=== PATIENT | male | born 1950 | race Caucasian/White ===

== ENCOUNTER → 2016-07-03 | Outpatient (CLI) | payer SELFPAY ==
--- NOTE | 2016-07-03 15:55 | US ---
EXAMINATION: Renal and renal arterial duplex ultrasound HISTORY: Hypertension COMPARISON: None TECHNIQUE: Grayscale and color Doppler images obtained of the kidneys, color and spectral Doppler im ages obtained of the renal arteries. FINDINGS: The right kidney measures 12.9 cm and the left kidney measures 12.2 cm [id number] withou t evidence of hydronephrosis. The renal cortical echotexture is normal. No renal masses. Normal colo r Doppler flow demonstrated bilaterally. Flow within the aorta is 122 cm/s. Velocities within the origin, proximal, mid, and distal right jazmin al arteries measure 129, 133, 164, and 122 cm/s. Velocities within the origin, proximal, mid, and di stal left radial arteries measure 95, 138, 125, and 180 cm/s respectively. The right RAR is 1.3, the left is 1.5. No elevated resistive indices are noted within the arcuates. IMPRESSION: 1. Unremarkable renal ultrasound. 2. No significant elevated velocities noted within the renal arteries bilaterally suggest significan t stenosis.
--- NOTE | 2016-07-03 15:55 | US ---
EXAMINATION: Renal and renal arterial duplex ultrasound HISTORY: Hypertension COMPARISON: None TECHNIQUE: Grayscale and color Doppler images obtained of the kidneys, color and spectral Doppler im ages obtained of the renal arteries. FINDINGS: The right kidney measures 12.9 cm and the left kidney measures 12.2 cm [id number] withou t evidence of hydronephrosis. The renal cortical echotexture is normal. No renal masses. Normal colo r Doppler flow demonstrated bilaterally. Flow within the aorta is 122 cm/s. Velocities within the origin, proximal, mid, and distal right jazmin al arteries measure 129, 133, 164, and 122 cm/s. Velocities within the origin, proximal, mid, and di stal left radial arteries measure 95, 138, 125, and 180 cm/s respectively. The right RAR is 1.3, the left is 1.5. No elevated resistive indices are noted within the arcuates. IMPRESSION: 1. Unremarkable renal ultrasound. 2. No significant elevated velocities noted within the renal arteries bilaterally suggest significan t stenosis.
== END ==
LOC: MW.US 09:00
PROVIDERS: ATTEND Internal Medicine
DX: I10 Essential (primary) hypertension (principal)
CPT/HCPCS: 76770; 76770-26; 93975; 93975-26

== ENCOUNTER 2018-05-16 10:22 | Day surgery (SDC) | payer MEDICARE ==
[~2018-05-16 10:22] MED LIST: Lactated Ringers 1,000 ML IV SCH; Lidocaine 2% 5 ML SDV ONE; Propofol 200 MG/20 ML SDV ONE; Sodium Chloride 0.9% 10 ML Syringe FLUSH PRN; Sodium Chloride 0.9% 2.5 ML Syringe FLUSH PRN; fentaNYL 100 MCG/2 ML SDV ONE
--- NOTE | 2018-05-16 11:14 | PCM.PREANE ---
Preanesthetic Assessment - Anesthesia/Transfusion/Family Hx Anesthesia History: Prior Anesthesia Without Reaction Transfusion History: No Prior Transfusion(s) - Review of Systems General: No Symptoms Pulmonary: No Symptoms Cardiovascular: No Symptoms Gastrointestinal: No Symptoms Neurological: No Symptoms Other: Reports: None - Physical Assessment NPO Status Date: 05/16/18 NPO Status Time: 09:00 O2 Sat by Pulse Oximetry: 96 Respiratory Rate: 18 Vital Signs: Last Vital Signs Temp 35.9 C 05/16/18 10:45 Pulse 65 05/16/18 10:45 Resp 18 05/16/18 10:45 BP 111/70 05/16/18 10:45 Pulse Ox 96 05/16/18 10:45 Height: 1.8 m Weight: 93.44 kg ASA Class: 2 Mental Status: Alert & Oriented x3 Airway Class: Mallampati = 3 (large tongue, small mouth) Dentition: Reports: Normal Dentition Thyro-Mental Finger Breadths: 3 Mouth Opening Finger Breadths: 3 ROM/Head Extension: Full Lungs: Clear to Auscultation, Normal Respiratory Effort Cardiovascular: Regular Rate, Regular Rhythm - Allergies Allergies/Adverse Reactions: Allergies Allergy/AdvReac Type Severity Reaction Status Date / Time dust mite extract SOLN Allergy sinus Uncoded 05/06/18 11:17 congestion - Acknowledgements Anesthesia Type Planned: MAC (The patient understands and accepts the anesthetic risks and benefits of MAC. All questions answered. The patient agrees to proceed, and has consented. ) Pt an Appropriate Candidate for the Planned Anesthesia: Yes Alternatives and Risks of Anesthesia Discussed w Pt/Guardian: Yes Pt/Guardian Understands and Agrees with Anesthesia Plan: Yes PreAnesthesia Questionnaire HEENT History: Reports: Other (See Below) (watery eyes) Cardiovascular History: Reports: High Cholesterol, Hypertension Respiratory History: Reports: COPD (no inhalers, and not oxygen dependent), Other (See Below) (chronic tobacco use for 40 years.) Gastrointestinal History: Reports: None Genitourinary History: Reports: None Musculoskeletal History: Reports: Gout, Other (See Below) (left and right shoulder pain-NONE NOW) Neurological History: Reports: None Psychiatric History: Reports: Anxiety, Depression Endocrine/Metabolic History: Reports: Diabetes, Type II (eapisdmog=646), Obesity /BMI 30+ Other Endocrine/Metabolic History: type II diabetic, not on medication since weight loss Hematologic History: Reports: None - Past Surgical History Endocrine Surgical History: Reports: None Musculoskeletal Surgical History: Reports: Shoulder Surgery Other Musculoskeletal Surgeries/Procedures:: hx left rotator cuff repair - SUBSTANCE USE Smoking Status *Q: Current Every Day Smoker Tobacco Use Within Last Twelve Months: Cigarettes Days Per Week of Alcohol Use: 7 (patients states that he drinks > 7 days a week) Recreational Drug Use History: No - HOME MEDS Home Medications: Home Meds Losartan [Cozaar] 100 mg PO DAILY 02/07/16 [History] Sertraline [Zoloft] 50 mg PO DAILY 02/07/16 [History] amLODIPine [Norvasc] 10 mg PO DAILY 02/07/16 [History] atorvaSTATin [Lipitor] 40 mg PO BEDTIME 02/07/16 [History] Aspirin [Adult Aspirin] 81 mg PO DAILY 05/06/18 [History] Fenofibrate,Micronized [Fenofibrate] 134 mg PO DAILY 05/06/18 [History] Fluticasone Propionate [Flonase Allergy Relief] 1 spray NASBOTH ASDIRECTED PRN 05/06/18 [History] Ibuprofen/Diphenhydramine Cit [Advil Pm Caplet] 2 tab PO BEDTIME PRN 05/06/18 [ History] - CURRENT (IN HOUSE) MEDS Current Meds: Current Medications Lactated Ringer's (Ringers, Lactated) 1,000 mls @ 125 mls/hr IV ASDIRECTED CONRAD Last Admin: 05/16/18 10:45 Dose: 125 mls/hr Sodium Chloride (Saline Flush) 10 ml FLUSH ASDIRECTED PRN PRN Reason: Keep Vein Open Sodium Chloride (Saline Flush) 2.5 ml FLUSH ASDIRECTED PRN PRN Reason: Keep Vein Open Sodium Chloride (Saline Flush) 10 ml FLUSH ASDIRECTED PRN PRN Reason: Keep Vein Open Sodium Chloride (Saline Flush) 2.5 ml FLUSH ASDIRECTED PRN PRN Reason: Keep Vein Open Discontinued Medications Fentanyl (Sublimaze) Confirm Administered Dose 100 mcg .ROUTE .STK-MED ONE Stop: 05/16/18 07:39 Lidocaine (Xylocaine-Mpf 2%) Confirm Administered Dose 5 ml .ROUTE .STK-MED ONE Stop: 05/16/18 07:38 Propofol (Diprivan 20 Ml) Confirm Administered Dose 400 mg .ROUTE .STShare0-MED ONE Stop: 05/16/18 07:39
--- NOTE | 2018-05-16 13:04 | PCM.OPNOTE ---
- General Post-Op/Procedure Note Date of Surgery/Procedure: 05/16/18 Operative Procedure(s): Screening Colonoscopy Findings: Rectal polyps x 2 Pre Op Diagnosis: Screening colonoscopy Post-Op Diagnosis: Rectal polyps x 2 Anesthesia Technique: MAC Primary Surgeon: Saira Hull Condition: Good
--- NOTE | 2018-05-16 13:12 | PCM.POSTAN ---
POST ANESTHESIA ASSESSMENT - MENTAL STATUS Mental Status: Alert, Oriented - RESPIRATORY Respiratory Status: Respiratory Rate WNL, Airway Patent, O2 Saturation Stable - CARDIOVASCULAR CV Status: Pulse Rate WNL, Blood Pressure Stable - GASTROINTESTINAL GI Status: No Symptoms - POST OP HYDRATION Hydration Status: Adequate & Stable - OBSERVATIONS Free Text/Narrative:: The patient tolerated the procedure well. There were no apparent anesthetic complications at this time. discharge home per criteria.
[2018-05-16 13:19] VITALS: BP 129/69
--- NOTE | 2018-05-16 13:29 | PCM48HPAN ---
Post Anesthesia Note - EVALUATION WITHIN 48HRS OF ANESTHETIC Vital Signs in Normal Range: Yes Patient Participated in Evaluation: Yes Respiratory Function Stable: Yes Airway Patent: Yes Cardiovascular Function Stable: Yes Hydration Status Stable: Yes Pain Control Satisfactory: Yes Nausea and Vomiting Control Satisfactory: Yes Mental Status Recovered: Yes Resp Rate: 16 - COMMENTS/OBSERVATIONS Free Text/Narrative:: The patient has no complaint at this time. Discharge home per criteria.
--- NOTE | 2018-05-17 13:31 | OR ---
SURGEON: JOSUÉ FRANCE MD DATE OF PROCEDURE: 05/16/2018 PREOPERATIVE DIAGNOSIS: Screening colonoscopy. POSTOPERATIVE DIAGNOSIS: Rectal polyp x2. PROCEDURE PERFORMED: Screening colonoscopy. ANESTHESIA: MAC. INSTRUMENT USED: Olympus colonoscope. EXTENT OF EXAM: To the cecum. PREPARATION: Good. LIMITATIONS: None. INDICATION FOR EXAMINATION: The patient is a 67-year-old male who presents for a colonoscopy. I explained the procedure, expected perioperative course, and risks including bleeding, infection, or damage to surrounding structures including perforation. The patient verbalized understanding and wishes to proceed. PROCEDURE IN DETAIL: The patient was brought to the endoscopy suite and placed in the left lateral decubitus position. A time-out was completed verifying the patient's name, age, date of , allergies, and procedure to be performed. Monitored anesthesia care was induced and continuous oxygen was provided via nasal cannula throughout the procedure. After adequate sedation was achieved, a digital rectal exam was performed. This exam was within normal limits. A well lubricated colonoscope was inserted in the rectum and advanced under direct visualization to the level of the cecum. The cecum was identified by both visual and anatomic landmarks. A photograph was taken of the cecal cap as well as the scope retroflexed within the cecum. The scope was then fully withdrawn while examining the color, texture, anatomy, and integrity of the mucosa from the cecum to the anal canal. The patient was found to have two rectal polyps. Narrow band imaging was used to look at these and they did not appear hyperplastic. They were both removed in piecemeal fashion using a cold biopsy forceps. The scope was then retroflexed within the rectum to allow visualization of the anal canal opening. This appeared normal and a photograph was taken. The scope was straightened out and fully withdrawn. The cecum to anus time was 12 minutes. The patient tolerated procedure well and was taken to PACU in stable condition. ENDOSCOPIC DIAGNOSIS: Rectal polyps x2. RECOMMENDATIONS: Follow up in clinic in 2 weeks. SUE ARCHIBALD /[id number]
== END 2018-05-16 13:30 | disposition home or self-care (01) ==
LOC: MW.SDS 10:22
PROVIDERS: ATTEND Surgery
DX: Z12.11 Encounter for screening for malignant neoplasm of colon (principal); K62.1 Rectal polyp; I10 Essential (primary) hypertension; E11.9 Type 2 diabetes mellitus without complications; J44.9 Chronic obstructive pulmonary disease, unspecified; E66.9 Obesity, unspecified; Z68.28 Body mass index [BMI] 28.0-28.9, adult; F17.210 Nicotine dependence, cigarettes, uncomplicated; F32.9 Major depressive disorder, single episode, unspecified; E78.00 Pure hypercholesterolemia, unspecified; Z79.82 Long term (current) use of aspirin; Z79.84 Long term (current) use of oral hypoglycemic drugs; Z79.899 Other long term (current) drug therapy
CPT/HCPCS: 45380; 82962; J2001; J2704; J3010; J7120; 88305